=== PATIENT | male | born 1940 | race Caucasian/White ===

== ENCOUNTER 2017-10-30 10:54 | Emergency (ER) | payer MEDICARE, OTHER, SELFPAY ==
[2017-10-30 11:00] VITALS: BP 134/63; PULSE 73; RESP 16; TEMP 36.5; O2SAT 94
[2017-10-30 12:18] LABS: Bilirubin Negative (Negative); Blood Moderate (Negative); Clarity Cloudy; Glucose Negative (Negative); Ketones 15 mg/dL (Negative); Leukocyte Esterase Moderate (Negative); Nitrite Negative (Negative); Specific Gravity 1.025 (1.005-1.025); Urobilinogen 0.2 EU/dL (Up TO 0.2)
[2017-10-30 12:27] LABS: Bacteria Many HPF (Negative); C & S Indicated? Yes; Casts Negative LPF (Negative); Crystals Negative HPF (Negative); Epithelial Cells Rare HPF (Negative); Mucus Negative (Negative); Other Cells Rare Renal (Negative); WBC >50 HPF (0-5)
--- NOTE | 2017-10-30 13:01 | W.ED.GENAD ---
Discharge Plan Disposition Patient Disposition: HOME Condition: Fair Discharge Details Chief Complaint: Urinary Clinical Impression: Acute UTI Primary Care Provider: PAU,LOCAL ED Provider: Latoya Lopez Home Meds and New Rx's Prescriptions: Continue simvastatin 10 mg Tablet 1 tab PO DAILY RF: 0 prednisone 5 mg Tablet 1 tab PO DAILY RF: 0 naproxen [Naprosyn] 125 mg/5 mL Suspension 220 mg PO DAILY RF: 0 tamsulosin 0.4 mg Capsule 1 tab PO DAILY RF: 0 leuprolide (3 month) [Lupron Depot (3 month)] 22.5 mg Syringe Kit See Label Instructions .ROUTE .COMPLEX RF: 0 aspirin 81 mg Tablet,Chewable 1 tab PO DAILY RF: 0 abiraterone 500 mg Tablet 1,000 mg PO QAM RF: 0 Discharge Instructions Instructions: Urinary Tract Infection in Men (ED) Additional Instructions: Continue to encourage hydration. Take Keflex as prescribed. Even if symptoms improve please take the entire course. Keep your appointment with your oncologist tomorrow. If you develop fever/chills, increased pain, other new or worsening symptoms please seek care urgently once again. Discharge Data Discharge Date/Time-TO BE ENTERED AT DEPARTURE: 10/30/17 16:25 Medical Decision Making MDM Narrative Medical decision making narrative: Kristine presents today with cc of dysurea, increased frequency and urgency. Patient is currently being treated for prostate ca with radiation. Last received treatment last week. Has appointment to be seen again tomorrow. He appears fatigued and chronically ill on exam. Did not preform TERI secondary to his known hx dx. Given his systemic sytmpoms, I am concerned for possible prostatitis. No CVA tenderness on exam. Will obtain UA, laboratory evaluation and CT of abdomen and pelvis. Blood cultures will also be sent. Plan to then consult with his oncologist regarding his results and treatment. Vital signs are WNL, patient appears nontoxic. He does appear dehydrated, will give IV hydration while here. Labs significant for low platelet count of 102, patient is unsure of what he has been historically. No leukocytosis. BUN elevated at 21, GFR is >60. Lactate slightly elevated at 1.6. UA significant for moderate blood, >50 WBC, many bacteria and rare epithelial cells. Concerned for UTI. CT reviewed by radiologist. They note urinary bladder wall thickening without definite mass. Mild prosthetic enlargement with prior radioactive seek implants. Normal appearing solid organs, no obstruction. No obstructive uropathy. No free fluid or free air. No inflammatory changes. Spoke with Dr. Voss, on-call oncologist at treating center, regarding the patient's laboratory evaluation, presenting symptoms and history. She advised that he may be treated as typical for urinary tract infection. She advised that his N/V is likely associated with his radiation given the location in which he is receiving treatment. She advised he keep his upcoming appointment tomorrow. Discussed this with the patient and his . He appears much improved. He reports feeling better with more energy after receiving IV fluid. We discussed his results and the advisement for treatment I receiving from Dr. Voss. Patient will be treated for UTI. He will keep appointment tomorrow. We discussed new/worsening symptoms and when to seek care urgently once again. All of their questions and concerns were addressed, they are in agreement with this plan. Lab Data Lab Results 10/30/17 Range/Units 12:00 Urine Color Yellow (Yellow) Urine Clarity Cloudy Urine pH 6.0 (5-8) Ur Specific [place] 1.025 (1.005-1.025) Urine Protein 100 H (Negative) mg/dL Urine Ketones 15 H (Negative) mg/dL Urine Blood Moderate H (Negative) Urine Nitrite Negative (Negative) Urine Bilirubin Negative (Negative) Urine Urobilinogen 0.2 (Up TO 0.2) EU/dL Ur Leukocyte Esterase Moderate H (Negative) Urine RBC 5-10 H (0-2) Urine WBC >50 (0-5) HPF Ur Epithelial Cells Rare (Negative) HPF Urine Crystals Negative (Negative) HPF Urine Bacteria Many (Negative) HPF Urine Casts Negative (Negative) LPF Urine Mucus Negative (Negative) Urine Other Rare renal (Negative) Ur Culture Indicated? Yes Urine Glucose Negative (Negative) mg/dL HPI - General Adult General Mode of arrival: ambulatory. Date/Time Provider Initiated Documentation: 10/30/17 13:00. Limitations to Documentation: no limitations. Information obtained by: patient and family. HPI Narrative: Patient is a 77 year old male presenting today, accompanied by his , with cc of dysurea, increased frequency and urgency. Patient is currently undergoing radiation for prostate ca. Was seen by oncologist on . [place] [facility] [place] after his appointment he drove up here with his for vacation. They report that on the way up he begn noting increased frequency and dysurea. Endorses subjective fevers at home. Denies hematuria. No back pain. States he has been nauseated but reports that GI upset can also go along with radiation. States he has noted increased fatigue. No change in bowel habits, no pain with BM. Related Data Home Medications Medication Instructions Recorded Confirmed abiraterone 1,000 mg PO QAM 10/30/17 10/30/17 aspirin 1 tab PO DAILY 10/30/17 10/30/17 leuprolide (3 month) [Lupron Depot See Label Instructions .ROUTE 10/30/17 10/30/17 (3 month)] .COMPLEX naproxen [Naprosyn] 220 mg PO DAILY 10/30/17 10/30/17 prednisone 1 tab PO DAILY 10/30/17 10/30/17 simvastatin 1 tab PO DAILY 10/30/17 10/30/17 tamsulosin 1 tab PO DAILY 10/30/17 10/30/17 Allergies Allergy/AdvReac Type Severity Reaction Status Date / Time No Known Allergies Allergy Unverified 10/30/17 11:09 General Stated Complaint: Urinary YOJANA: 3 Review of Systems Constitutional Reports as per HPI, Reports body ache(s), Reports chills, Reports fatigue, Reports fever(s), Denies headache(s) and Reports poor appetite ENT Denies headache(s) Cardiovascular Denies chest pain, Denies leg edema, Denies palpitations, Denies dyspnea and Denies dyspnea on exertion Respiratory Denies chest congestion, Denies cough, Denies dyspnea and Denies dyspnea on exertion Gastrointestinal Reports as per HPI, Denies abdominal pain, Denies change in bowel habits, Denies constipation, Reports nausea and Reports vomiting Genitourinary Reports as per HPI, Reports dysuria, Denies flank pain, Denies penile discharge, Denies scrotal swelling, Denies testicular mass, Denies testicular pain, Reports urinary frequency, Denies urinary incontinence and Reports urinary urgency Musculoskeletal Denies back pain Integumentary/Breasts Denies rash Neurologic Denies headache(s) Endocrine Reports fatigue and Denies palpitations PFSH Social History Smoking/Tobacco Use Status: Former Tobacco Use Exam Const General: cooperative, comfortable, no acute distress, well developed, well groomed and ill appearing chronically Nutritional Appearance: average body habitus and well nourished Orientation: alert and awake Eyes General: appearance normal, both eyes and all related structures Resp Effort & Inspection: normal respiratory effort, able to speak in complete sentences and no respiratory distress Auscultation: clear to auscultation bilaterally Cardio Rate: regular rate Rhythm: regular rhythm Heart Sounds: S1 normal and S2 normal GI Inspection: normal to inspection (patient has smallback dot, consistent with radiation marker over the upper central abdomen) and non-distended Palpation: soft, no hepatosplenomegaly, no aortic enlargement, not firm, no guarding, no hernias, no masses, not rigid and tender (low, central discomfort with palpation, no guarding or rebound tenderness) Auscultation: normal bowel sounds Male General Exam: Yes normal external exam Penis: normal penis Back/Spine/Pelvis Back: no CVA tenderness Skin General skin exam: no rashes or lesions noted Lesions: no lesions Rashes: no rashes Neuro General: alert, awake and oriented x3 Cognition: normal cognition Speech: speech normal Gait: normal gait Extrem General: normal to inspection, no pedal edema and no calf tenderness Psych Appearance: grossly normal and well kempt Mental Status: mental status grossly normal Speech and Movement: speech and movement normal Course Vital Signs Temperature 36.5 C 10/30/17 11:00 Pulse 73 10/30/17 11:00 Respiratory Rate 16 10/30/17 11:00 Blood Pressure 134/63 10/30/17 11:00 Pulse Oximetry 94 L 10/30/17 11:00 Temperature 36.5 C 10/30/17 11:00 Pulse 73 10/30/17 11:00 Respiratory Rate 16 10/30/17 11:00 Blood Pressure 134/63 10/30/17 11:00 Pulse Oximetry 94 L 10/30/17 11:00 Lab/Test Results Lab/Test Results: Laboratory Tests 10/30/17 12:00 Urine Color Yellow Urine Clarity Cloudy Urine pH 6.0 Ur Specific [place] 1.025 Urine Protein 100 H Urine Ketones 15 H Urine Blood Moderate H Urine Nitrite Negative Urine Bilirubin Negative Urine Urobilinogen 0.2 Ur Leukocyte Esterase Moderate H Urine RBC 5-10 H Urine WBC >50 Ur Epithelial Cells Rare Urine Crystals Negative Urine Bacteria Many Urine Casts Negative Urine Mucus Negative Urine Other Rare renal Ur Culture Indicated? Yes Urine Glucose Negative
--- NOTE | 2017-10-30 13:22 | DI.CT_ITS ---
SYMPTOM/DIAGNOSIS: FEVER, DYSURIA, UNDERGOING RADIATION FOR PROSTATE CA ABDOMEN AND PELVIC CT: CT scan of the abdomen and pelvis was performed following the uneventful administration of intravenous contrast material. No priors for comparison. Chronic interstitial disease is seen in the lung bases. No focal consolidating infiltrates are appreciated. The liver is normal in size. No suspicious hepatic mass is seen. The portal and superior mesenteric veins are patent. The gallbladder is negative by CT criteria. No biliary ductal dilatation is present. The spleen, adrenal glands and pancreas are unremarkable. The kidneys show symmetric enhancement. There are bilateral renal cysts and bilateral non obstructing renal stones. Inflammatory stranding is seen about the right kidney. The possibility of a pyelonephritis cannot be excluded. No obstructive uropathy is identified. There is diffuse nonspecific thickening of the wall of the urinary bladder. The prostate gland appears mildly enlarged. Prostatic seeds are in place. There is atherosclerosis of the abdominal aorta. There is a 3.4 cm. infrarenal abdominal aortic aneurysm. No significant abdominal or pelvic adenopathy, ascites or pneumoperitoneum is present. There is diverticulosis of the colon but no evidence of acute diverticulitis. No evidence of bowel obstruction or inflammation is seen. A normal retrocecal appendix is present. Note is made of a moderate sized duodenal diverticulum. There appear to be post surgical changes of a prior right inguinal hernia repair. There is a sclerotic focus seen in the left iliac bone. This may represent a bone island. Please correlate with prior examinations to assess for possibility of a metastatic focus. There are degenerative changes seen throughout the spine. There is an old compression deformity of L 1. IMPRESSION: 1. Inflammatory stranding seen around the right kidney. This is nonspecific. Inflammatory or infectious process cannot be excluded. Please correlate clinically. 2. Generalized thickening of the wall of the urinary bladder. This is nonspecific. Prostatic seeds are noted in the prostate consistent with radiation therapy. 3. Diverticulosis of the colon but no evidence of acute diverticulitis. 4. Bilateral nephrolithiasis but no evidence of ureterolithiasis or obstructive uropathy.
[2017-10-30] MEDS: Normal Saline 1,000 ML 1000 ML IV (13:57)
[2017-10-30 14:02] LABS: Lactate-non-spesis 1.6 mmol/L (0.6-1.4)
[2017-10-30 14:03] LABS: Abs Immature Grans 0.02 k/cumm (0.0-0.09); Absolute Basophil Count 0.02 k/cumm (0.0-0.2); Absolute Eosinophil Count 0.07 k/cumm (0.0-0.7); Absolute Lymphocyte Count 0.28 k/cumm (1.2-3.4); Absolute Monocyte Count 1.06 k/cumm (0.11-0.7); Absolute Neutrophil Count 6.18 k/cumm (1.2-6.7); Basophils % 0.3; Eosinophils % 0.9; HCT 40.1 % (40.0-50.0); HGB 13.7 g/dL (13.5-17.5); Immature Grans % 0.3; Lymphocytes % 3.7; Mean Corp. HGB Concentration 34.2 g/dL (32.0-36.0); Mean Corpuscular Volume 87.7 fL (80-95); Monocytes % 13.9; Neutrophils % 80.9; Platelet Count 102 x1000/uL (130-400); RBC 4.57 m/cumm (4.50-6.00); White Blood Cell Count 7.63 k/cumm (4.4-10.8)
[2017-10-30 14:17] LABS: ALT 23 U/L (12-78); AST 25 U/L (15-37); Albumin 3.2 g/dL (3.4-5.0); Alkaline Phosphatase 93 U/L (46-116); Anion Gap 8.9 mmol/L (3-11); BUN 21 mg/dL (7-18); Bilirubin, Total 1.1 mg/dL (0.2-1.0); CO2 29.1 mmol/L (21.0-32.0); CREATININE 0.93 mg/dL (0.70-1.30); Calcium 8.9 mg/dL (8.5-10.1); Chloride 102 mmol/L (98-107); Glucose 110 mg/dL (70-100); Lipase 69 U/L (73-393); Potassium 3.4 mmol/L (3.5-5.1); Sodium 140 mmol/L (136-145)
[2017-10-30] MEDS: Omnipaque 350 MG/ML 100 ML BTL IJ (14:58)
--- NOTE | 2017-10-30 15:23 | DI.VRAD_ITS ---
EXAM: CT Abdomen and Pelvis With Intravenous Contrast CLINICAL HISTORY: 77 years old, male; Signs and symptoms; Fever and other: Dysurea; Patient HX: Undergoing radiation for prostate cancer TECHNIQUE: Axial computed tomography images of the abdomen and pelvis with intravenous contrast. Coronal and sagittal reformatted images were created and reviewed. COMPARISON: No relevant prior studies available. FINDINGS: Basilar interstitial lung scarring. Urinary bladder wall thickening without a definite mass. Mild prosthetic enlargement with prior radioactive seed implants. Normal appearing solid organs. No intestinal obstruction. No obstructive uropathy. No free fluid. No free air. No inflammatory changes. IMPRESSION: No specific etiology identified for the patient's symptoms. Dictated and Authenticated by: Bolivar Bruno MD. Ordering:POOL ROBLES MD
--- NOTE | 2017-10-30 16:23 | ED.GENADUL_ITS ---
Discharge Plan Disposition Patient Disposition: HOME Condition: Fair Discharge Details Chief Complaint: Urinary Clinical Impression: Acute UTI Primary Care Provider: PAU,LOCAL ED Provider: Latoya Lopez Home Meds and New Rx's Prescriptions: Continue simvastatin 10 mg Tablet 1 tab PO DAILY RF: 0 prednisone 5 mg Tablet 1 tab PO DAILY RF: 0 naproxen [Naprosyn] 125 mg/5 mL Suspension 220 mg PO DAILY RF: 0 tamsulosin 0.4 mg Capsule 1 tab PO DAILY RF: 0 leuprolide (3 month) [Lupron Depot (3 month)] 22.5 mg Syringe Kit See Label Instructions .ROUTE .COMPLEX RF: 0 aspirin 81 mg Tablet,Chewable 1 tab PO DAILY RF: 0 abiraterone 500 mg Tablet 1,000 mg PO QAM RF: 0 Discharge Instructions Instructions: Urinary Tract Infection in Men (ED) Additional Instructions: Continue to encourage hydration. Take Keflex as prescribed. Even if symptoms improve please take the entire course. Keep your appointment with your oncologist tomorrow. If you develop fever/chills, increased pain, other new or worsening symptoms please seek care urgently once again. Discharge Data Discharge Date/Time-TO BE ENTERED AT DEPARTURE: 10/30/17 16:25 Medical Decision Making MDM Narrative Medical decision making narrative: Kristine presents today with cc of dysurea, increased frequency and urgency. Patient is currently being treated for prostate ca with radiation. Last received treatment last week. Has appointment to be seen again tomorrow. He appears fatigued and chronically ill on exam. Did not preform TERI secondary to his known hx dx. Given his systemic sytmpoms, I am concerned for possible prostatitis. No CVA tenderness on exam. Will obtain UA, laboratory evaluation and CT of abdomen and pelvis. Blood cultures will also be sent. Plan to then consult with his oncologist regarding his results and treatment. Vital signs are WNL, patient appears nontoxic. He does appear dehydrated, will give IV hydration while here. Labs significant for low platelet count of 102, patient is unsure of what he has been historically. No leukocytosis. BUN elevated at 21, GFR is >60. Lactate slightly elevated at 1.6. UA significant for moderate blood, >50 WBC, many bacteria and rare epithelial cells. Concerned for UTI. CT reviewed by radiologist. They note urinary bladder wall thickening without definite mass. Mild prosthetic enlargement with prior radioactive seek implants. Normal appearing solid organs, no obstruction. No obstructive uropathy. No free fluid or free air. No inflammatory changes. Spoke with Dr. Voss, on-call oncologist at treating center, regarding the patient's laboratory evaluation, presenting symptoms and history. She advised that he may be treated as typical for urinary tract infection. She advised that his N/V is likely associated with his radiation given the location in which he is receiving treatment. She advised he keep his upcoming appointment tomorrow. Discussed this with the patient and his . He appears much improved. He reports feeling better with more energy after receiving IV fluid. We discussed his results and the advisement for treatment I receiving from Dr. Voss. Patient will be treated for UTI. He will keep appointment tomorrow. We discussed new/ worsening symptoms and when to seek care urgently once again. All of their questions and concerns were addressed, they are in agreement with this plan. Lab Data Lab Results 10/30/17 Range/Units 12:00 Urine Color Yellow (Yellow) Urine Clarity Cloudy Urine pH 6.0 (5-8) Ur Specific [place] 1.025 (1.005-1.025) Urine Protein 100 H (Negative) mg/dL Urine Ketones 15 H (Negative) mg/dL Urine Blood Moderate H (Negative) Urine Nitrite Negative (Negative) Urine Bilirubin Negative (Negative) Urine Urobilinogen 0.2 (Up TO 0.2) EU/dL Ur Leukocyte Esterase Moderate H (Negative) Urine RBC 5-10 H (0-2) Urine WBC >50 (0-5) HPF Ur Epithelial Cells Rare (Negative) HPF Urine Crystals Negative (Negative) HPF Urine Bacteria Many (Negative) HPF Urine Casts Negative (Negative) LPF Urine Mucus Negative (Negative) Urine Other Rare renal (Negative) Ur Culture Indicated? Yes Urine Glucose Negative (Negative) mg/dL HPI - General Adult General Mode of arrival: ambulatory . Date/Time Provider Initiated Documentation: 10/30/17 13:00 . Limitations to Documentation: no limitations . Information obtained by: patient and family . HPI Narrative: Patient is a 77 year old male presenting today, accompanied by his , with cc of dysurea, increased frequency and urgency. Patient is currently undergoing radiation for prostate ca. Was seen by oncologist on . Patient is seen in [place], [place] at [facility] [place]. States after his appointment he drove up here with his for vacation. They report that on the way up he begn noting increased frequency and dysurea. Endorses subjective fevers at home. Denies hematuria. No back pain. States he has been nauseated but reports that GI upset can also go along with radiation. States he has noted increased fatigue. No change in bowel habits, no pain with BM. Related Data Home Medications Medication Instructions Recorded Confirmed abiraterone 1,000 mg PO QAM 10/30/17 10/30/17 aspirin 1 tab PO DAILY 10/30/17 10/30/17 leuprolide (3 month) [Lupron Depot See Label Instructions .ROUTE 10/30/17 (3 month)] .COMPLEX naproxen [Naprosyn] 220 mg PO DAILY 10/30/17 10/30/17 prednisone 1 tab PO DAILY 10/30/17 10/30/17 simvastatin 1 tab PO DAILY 10/30/17 10/30/17 tamsulosin 1 tab PO DAILY 10/30/17 10/30/17 Allergies Allergy/AdvReac Type Severity Reaction Status Date / Time No Known Allergies Allergy Unverified 10/30/17 11:09 General Stated Complaint: Urinary YOJANA: 3 Review of Systems Constitutional Reports as per HPI, Reports body ache(s), Reports chills, Reports fatigue, Reports fever(s), Denies headache(s) and Reports poor appetite ENT Denies headache(s) Cardiovascular Denies chest pain, Denies leg edema, Denies palpitations, Denies dyspnea and Denies dyspnea on exertion Respiratory Denies chest congestion, Denies cough, Denies dyspnea and Denies dyspnea on exertion Gastrointestinal Reports as per HPI, Denies abdominal pain, Denies change in bowel habits, Denies constipation, Reports nausea and Reports vomiting Genitourinary Reports as per HPI, Reports dysuria, Denies flank pain, Denies penile discharge , Denies scrotal swelling, Denies testicular mass, Denies testicular pain, Reports urinary frequency, Denies urinary incontinence and Reports urinary urgency Musculoskeletal Denies back pain Integumentary/Breasts Denies rash Neurologic Denies headache(s) Endocrine Reports fatigue and Denies palpitations PFSH Social History Smoking/Tobacco Use Status: Former Tobacco Use Exam Const General: cooperative, comfortable, no acute distress, well developed, well groomed and ill appearing chronically Nutritional Appearance: average body habitus and well nourished Orientation: alert and awake Eyes General: appearance normal, both eyes and all related structures Resp Effort & Inspection: normal respiratory effort, able to speak in complete sentences and no respiratory distress Auscultation: clear to auscultation bilaterally Cardio Rate: regular rate Rhythm: regular rhythm Heart Sounds: S1 normal and S2 normal GI Inspection: normal to inspection (patient has smallback dot, consistent with radiation marker over the upper central abdomen) and non-distended Palpation: soft, no hepatosplenomegaly, no aortic enlargement, not firm, no guarding, no hernias, no masses, not rigid and tender (low, central discomfort with palpation, no guarding or rebound tenderness) Auscultation: normal bowel sounds Male General Exam: Yes normal external exam Penis: normal penis Back/Spine/Pelvis Back: no CVA tenderness Skin General skin exam: no rashes or lesions noted Lesions: no lesions Rashes: no rashes Neuro General: alert, awake and oriented x3 Cognition: normal cognition Speech: speech normal Gait: normal gait Extrem General: normal to inspection, no pedal edema and no calf tenderness Psych Appearance: grossly normal and well kempt Mental Status: mental status grossly normal Speech and Movement: speech and movement normal Course Vital Signs Temperature 36.5 C 10/30/17 11:00 Pulse 73 10/30/17 11:00 Respiratory Rate 16 10/30/17 11:00 Blood Pressure 134/63 10/30/17 11:00 Pulse Oximetry 94 L 10/30/17 11:00 Temperature 36.5 C 10/30/17 11:00 Pulse 73 10/30/17 11:00 Respiratory Rate 16 10/30/17 11:00 Blood Pressure 134/63 10/30/17 11:00 Pulse Oximetry 94 L 10/30/17 11:00 Lab/Test Results Lab/Test Results: Laboratory Tests 10/30/17 12:00 Urine Color Yellow Urine Clarity Cloudy Urine pH 6.0 Ur Specific [place] 1.025 Urine Protein 100 H Urine Ketones 15 H Urine Blood Moderate H Urine Nitrite Negative Urine Bilirubin Negative Urine Urobilinogen 0.2 Ur Leukocyte Esterase Moderate H Urine RBC 5-10 H Urine WBC >50 Ur Epithelial Cells Rare Urine Crystals Negative Urine Bacteria Many Urine Casts Negative Urine Mucus Negative Urine Other Rare renal Ur Culture Indicated? Yes Urine Glucose Negative
== END 2017-10-30 16:25 | disposition home or self-care (01) ==
PROVIDERS: Emergency Provider Physician Assistant
DX: N39.0 Urinary tract infection, site not specified (principal); B96.5 Pseudomonas (aeruginosa) (mallei) (pseudomallei) as the cause of diseases classified elsewhere; E86.0 Dehydration; C61 Malignant neoplasm of prostate
CPT/HCPCS: 36415; 80053; 83690; 87040; 87077; 96360; 99285; 74177; 81003; 81015; 83605; 85025; 87086; 87186; J3490